=== PATIENT | male | born 1985 | race Caucasian/White ===

== ENCOUNTER 2021-04-02 11:13 | Emergency (ER) | payer OTHER, SELFPAY ==
--- NOTE | 2021-04-02 11:15 | ED.GENADULT ---
HPI - General Adult General Chief complaint: Unspecified Stated complaint: refill on prescription Time Seen by Provider: 04/02/21 11:15 Source: patient, RN notes reviewed and police Mode of arrival: ambulatory Limitations: no limitations History of Present Illness HPI narrative: 35 yo male presents to the [facility] for a refill on his valacyclovir 500 mg 1 daily. Patient states he has a history of herpes, genital and since taking this daily has not had an outbreak. Is also currently looking for a primary care provider. Has seen a PCM in [facility], Dr Jose J Woodruff. Related Data Home Medications Medication Instructions Recorded Confirmed valacyclovir [Valtrex] 500 mg PO DAILY 04/02/21 04/02/21 Allergies Allergy/AdvReac Type Severity Reaction Status Date / Time No Known Allergies Allergy Verified 04/02/21 11:24 Review of Systems Review of Systems: All systems reviewed & are unremarkable except as noted in HPI and below Constitutional: Constitutional: Reports no additional constitutional complaints, Denies chills and Denies fever(s) Eyes: Eyes: Reports no additional eye complaints ENT: Reports system reviewed and no additional complaints, except as documented Cardiovascular: Cardiovascular: Reports no additional cardiovascular complaints Respiratory: Respiratory: Reports no additional respiratory complaints Genitourinary: Genitourinary: Reports no additional male genitourinary complaints Musculoskeletal: Musculoskeletal: Reports no additional musculoskeletal complaints Integumentary/Breasts: Skin/Breast: Reports system reviewed and no additional complaints, except as docu, Denies pruritus and Denies rash Neurologic: Reports system reviewed and no additional complaints, except as documented Psychiatric: Psychiatric: Reports no additional psychiatric complaints PMFSH Comments Patient denies any significant past medical or surgical history. At the time of my signature, I reviewed and agree with the nursing past medical, surgical, social, and family history. There is no relevant family history pertinent to the patient complaint. Exam Const: General: healthy appearing, no acute distress and alert Orientation/consciousness: patient oriented x3 Limitations: no limitations HENMT: Head: normal to inspection Neck: Neck: normal visual inspection Chest: Chest palpation & inspection: normal inspection of the chest Resp: Effort & Inspection: normal respiratory effort Auscultation: clear to auscultation bilaterally Cardio: Rate: regular rate Rhythm: regular rhythm Back/Spine/Pelvis: Back: no CVA tenderness Skin: General skin exam: normal color Neuro: General: patient oriented x3, moves all extremities, no meningeal signs and no focal motor deficits Speech: normal speech Gait exam (Neuro): Normal gait present Extrem: General: normal to inspection Psych: Appearance: grossly normal and well kempt Mental Status: mental status grossly normal Affect: normal affect Attitude: cooperative Thought content: Yes Normal thought content present Course Vital Signs Vital signs: Vital Signs Temperature 98.3 F 04/02/21 11:20 Pulse Rate 62 04/02/21 11:20 Respiratory Rate 18 04/02/21 11:20 Blood Pressure 124/82 04/02/21 11:20 Pulse Oximetry 99 04/02/21 11:20 Temperature 98.3 F 04/02/21 11:20 Pulse Rate 62 04/02/21 11:20 Respiratory Rate 18 04/02/21 11:20 Blood Pressure 124/82 04/02/21 11:20 Pulse Oximetry 99 04/02/21 11:20 Reviewed Medical Decision Making MDM Narrative Medical decision making narrative: Discussed with patient the importance of following up with primary care provider. Discussed with patient that this will be a one-time occurrence to receive a refill. Vital Signs Vital Signs: Vital Signs Temperature 98.3 F 04/02/21 11:20 Pulse Rate 62 04/02/21 11:20 Respiratory Rate 18 04/02/21 11:20 Blood Pressure 124/82 04/02/21 11:20 Pulse Oxime
[2021-04-02 11:20] VITALS: BP 124/82; PULSE 62; RESP 18; TEMP 36.8; O2SAT 99
== END 2021-04-02 11:32 | disposition home or self-care (01) ==
PROVIDERS: Emergency Provider Nurse Practitioner
DX: A60.01 Herpesviral infection of penis (principal)
CPT/HCPCS: 99211; G0463